=== PATIENT | female | born 1935 | race Caucasian/White ===

== ENCOUNTER → 2016-12-19 | Outpatient (CLI) | payer MEDICARE, BC ==
[~2016-12-19] VITALS: Ht 157.5 cm; Wt 77.1 kg
[~2016-12-19] MED LIST: ACETAMINOPHEN; ASPIRIN EC81 M1 PO; CALCIUM500 M1 PO; FUROSEMIDE40 MG PO; LIPITOR40 MG PO; LOTREL 10-40 M1 EACH PO; MOBIC15 MG PO; OSTEO BI-FLEX1 EAC1 PO; POTASSIUM CHLO10 MEQ PO; PRILOSEC; SYNTHROID; TENORMIN50 MG PO; VESICARE PO; ZOLOFT PO
== END | disposition home or self-care (01) ==
LOC: CSSDAY 13:30
DX: M81.0 Age-related osteoporosis without current pathological fracture (principal)
CPT/HCPCS: 96372; J0897

== ENCOUNTER → 2017-01-01 | Outpatient (CLI) | payer MEDICARE, BC ==
--- NOTE | ~2017-01-01 | MY29 ---
[facility] A Service of [facility] & [facility] RADIOLOGY TEXT RESULTS PATIENT: DONALD RODRIGUEZ LOCATION: [facility] : 39 UNIT #: [id number] AGE: [address]: Dia Mejía MD SEX: F ORDER DR: [id number] [facility] [address] [place], [place] [address] [id number] O MR#: [id number] Acc #: [id number] NAME: DONALD RODRIGUEZ : 1935 SEX: F STUDY DATE/TIME: 01/01/2017 14:12 UNIT: [facility] ROOM: STUDY DESCRIPTION: MY GINNY SCREENING W/ CAD BILAT Attending Physician: Dia Mejía M.D. Referring Physician: Dia Mejía M.D. Ordering Physician: Dia Mejía M.D. Primary Care Physician: Dia Mejía M.D. MEDICAL IMAGING REPORT This report is preliminary unless electronic signature is present ADDENDUM Outside mammograms were made available for comparison performed at [facility], [address], [place], [address], dated July 19, 2015, and January 06, 2015, and at [facility], [address], [place], [address], dated November 05, 2013. FINDINGS The breasts are almost entirely fatty. There are no suspicious findings in either breast. The mammographic pattern is stable. IMPRESSION No mammographic evidence of malignancy. Continued annual screening mammography and clinical breast exam are recommended. BIRADS: 1 Negative. ADDENDUM JOB NUMBER [id number] Dictated by... Richardson Sharp M.D. THIS IS AN ELECTRONICALLY VERIFIED REPORT Richardson Sharp M.D. at 01/24/2017 12:42 PM BLM/pc TD: 01/22/2017 13:01 JOB #: [id number] MEDICAL IMAGING REPORT Page 1 of 1 COPY
== END | disposition home or self-care (01) ==
LOC: CWCC 13:40
DX: Z12.31 Encounter for screening mammogram for malignant neoplasm of breast (principal)
CPT/HCPCS: G0202